=== PATIENT | female | born 1960 | race Caucasian/White ===

== ENCOUNTER → 2018-02-22 | Outpatient (CLI) | payer MEDICARE ==
[~2018-02-22] MED LIST: ALBU90OI INH; ASPI81CH PO; ATOR40TA PO; ATOR80 PO; CEPH500 PO; Cartia Xt120 MG PO; DILT60ER PO; GABA800 PO; GLIP5 PO; Humulin 70-30 V10 ML SC; Isosorbide Mono60 MG PO; Keflex500 MG PO; LEVSOD125 PO; LOSA25 PO; LOSA50 PO; METF500 PO; METO25 PO; Nitrostat0.4 MG SL; Norco 5-325 Ta1 EACH PO; OMEP40CA12 PO; OMEPRAZOLE MAGN20 MG PO; PROM25 PO; Percocet 5-3251 EACH PO; SULTRIDS PO; TRIHYD253A PO; VENLAFAXINE H37.5 MG PO; VITAMIN D3 1,01 EACH PO; Zofran8 MG PO
[2018-02-22 18:09] LABS: Appearance, Urine Clear (Clear); Bilirubin, Urine Neg (Neg); Blood, Urine Neg (Neg); Color, Urine Yellow (P-Yellow); Glucose Qualitative, Urine Neg (Neg); Ketones, Urine Neg (Neg); Leukocyte Esterase, Urine Neg (Neg); Nitrite, Urine Neg (Neg); Protein, Urine Neg (Neg); Specific Gravity, Urine 1.005 (1.003-1.022); Urobilinogen, Urine NORM (Normal)
== END | disposition home or self-care (01) ==
LOC: LAB 17:57 → LAB SHORT 17:57
PROVIDERS: Internal Medicine Hematology & Oncology
DX: N39.0 Urinary tract infection, site not specified (principal)
CPT/HCPCS: 81003

== ENCOUNTER 2018-02-26 09:34 | Day surgery (SDC) | payer MEDICARE ==
[~2018-02-26] VITALS: Ht 172.7 cm; Wt 90.9 kg
== END 2018-02-26 11:30 | disposition home or self-care (01) ==
LOC: ORSCSDS 09:34
PROVIDERS: Internal Medicine Gastroenterology
PROC: 0DBK8ZX Excision of Ascending Colon, Via Natural or Artificial Opening Endoscopic, Diagnostic (ICD-10-PCS; principal; 2018-02-26 11:00)
PROC: 0DBP8ZX Excision of Rectum, Via Natural or Artificial Opening Endoscopic, Diagnostic (ICD-10-PCS; principal; 2018-02-26 11:00)
DX: Z12.11 Encounter for screening for malignant neoplasm of colon (principal); D12.2 Benign neoplasm of ascending colon; K62.1 Rectal polyp; K57.30 Diverticulosis of large intestine without perforation or abscess without bleeding; K64.1 Second degree hemorrhoids; E11.9 Type 2 diabetes mellitus without complications; I10 Essential (primary) hypertension; Z79.4 Long term (current) use of insulin; Z79.899 Other long term (current) drug therapy; Z79.82 Long term (current) use of aspirin
CPT/HCPCS: 82947; 88305; J7120

== ENCOUNTER 2018-05-22 09:12 | Observation (INO) | payer MEDICARE, SELFPAY ==
[~2018-05-22] VITALS: Ht 170.2 cm; Wt 94.4 kg
[~2018-05-22 09:12] MED LIST changes: -METF500 PO; +METF500C PO
[2018-05-22 09:44] LABS: BASOPHILS ABSOLUTE AUTO 0.04 K/mm3 (0.00-0.23); BASOPHILS PERCENT AUTO 1 % (0-2); EOSINOPHILS ABSOLUTE AUTO 0.15 K/mm3 (0.00-0.68); EOSINOPHILS PERCENT AUTO 3 % (0-6); Hematocrit 35.4 % (33.0-51.0); Hemoglobin 11.2 g/dL (11.5-16.0); IMMATURE GRAN ABSOLUTE AUTO 0.01 K/mm3 (0.00-0.10); IMMATURE GRAN PERCENT AUTO 0 % (0-1); LYMPHOCYTES ABSOLUTE AUTO 1.74 K/mm3 (0.84-5.20); LYMPHOCYTES PERCENT AUTO 39 % (21-46); MONOCYTES ABSOLUTE AUTO 0.34 K/mm3 (0.16-1.47); MONOCYTES PERCENT AUTO 8 % (4-13); Mean Corpuscular HGB 28.6 pg (26.0-34.0); Mean Corpuscular HGB Conc 31.6 g/dL (31.5-36.5); Mean Corpuscular Volume 90 fL (80-100); NEUTROPHILS ABSOLUTE AUTO 2.23 K/mm3 (1.96-9.15); NEUTROPHILS PERCENT AUTO 50 % (41-73); Platelet Count 165 K/mm3 (150-400); RDW Coefficient Variation 13.1 % (11.7-14.2); RDW Standard Deviation 42.9 fL (35.1-46.3); Red Blood Cell Count 3.92 M/mm3 (3.80-5.20); White Blood Cell Count 4.51 K/mm3 (4.00-11.30)
[2018-05-22 10:07] LABS: Troponin I 0.039 ng/mL (0.000-0.040)
[2018-05-22 10:08] LABS: Alanine Aminotransfer (ALT/SGP 31 U/L (12-78); Albumin, Blood 3.8 g/dL (3.4-5.0); Albumin/Globulin Ratio 1.2 (0.8-1.8); Alk Phos 70 U/L (50-136); Anion Gap 7 mmol/L (6-16); Aspartate Aminotrans (AST/SGOT 16 U/L (12-37); Bilirubin, Total 0.3 mg/dL (0.1-1.0); Blood Urea Nitrogen 19 mg/dL (8-24); Bun/Creatinine Ratio 21.6 (12.0-20.0); CO2, Blood 25 mmol/L (21-32); Calcium, Blood 8.5 mg/dL (8.5-10.1); Chloride, Blood 107 mmol/L (98-108); Creatinine, Blood 0.88 mg/dL (0.40-1.00); Globulin, Blood 3.3 g/dL (2.2-4.0); Glomerular Filtration Rate >60 (60-); Glucose, Blood 253 mg/dL (70-99); Potassium, Blood 4.4 mmol/L (3.5-5.5); Sodium, Blood 139 mmol/L (136-145); Total Protein, Blood 7.1 g/dL (6.4-8.2)
[2018-05-22] MEDS ORDERED: PROC5 PO (15:12)
[2018-05-22] MEDS ORDERED: ROSU5 PO (15:13)
== END 2018-05-23 11:03 | disposition home or self-care (01) ==
LOC: ER 09:12 → MEDS 11:20 → ENPENDDIS 05-23 08:46 → MEDS 05-23 11:03
PROVIDERS: Emergency Medicine
DX: R07.89 Other chest pain (principal); I25.10 Atherosclerotic heart disease of native coronary artery without angina pectoris; E11.9 Type 2 diabetes mellitus without complications; I10 Essential (primary) hypertension; E03.9 Hypothyroidism, unspecified; E11.42 Type 2 diabetes mellitus with diabetic polyneuropathy; D64.9 Anemia, unspecified; M79.7 Fibromyalgia; I25.2 Old myocardial infarction; E78.5 Hyperlipidemia, unspecified; F32.9 Major depressive disorder, single episode, unspecified; Z79.84 Long term (current) use of oral hypoglycemic drugs; Z79.899 Other long term (current) drug therapy; Z79.82 Long term (current) use of aspirin
CPT/HCPCS: 36415; 71046; 80053; 82947; 84484; 85025; 93005; 93010; 96372; 96374; 99285-25; G0378; J1650; J3010

== ENCOUNTER 2018-08-23 11:35 | Emergency (ER) | payer MEDICARE, SELFPAY ==
[~2018-08-23] VITALS: Ht 170.2 cm; Wt 95.2 kg
[~2018-08-23 11:35] MED LIST changes: +PROC5 PO; +ROSU5 PO
[2018-08-23 12:17] LABS: Source, Urine Clean Catch
[2018-08-23 12:23] LABS: Bilirubin, Urine Neg (Neg); Blood, Urine 4+ (Neg); Color, Urine Yellow (P-Yellow); Glucose Qualitative, Urine Neg (Neg); Ketones, Urine Neg (Neg); Leukocyte Esterase, Urine 2+ (Neg); Nitrite, Urine Pos (Neg); Protein, Urine Neg (Neg); Urobilinogen, Urine NORM (Normal)
[2018-08-23 12:48] LABS: Appearance, Urine Hazy (Clear)
[2018-08-23] MEDS ORDERED: KETO10 PO (13:09)
[2018-08-23] MEDS ORDERED: Cipro250 MG PO (13:09)
[2018-08-23] MEDS ORDERED: Zofran4 MG PO (13:09)
== END 2018-08-23 13:27 | disposition home or self-care (01) ==
LOC: ER 11:35
PROVIDERS: Physician Assistant
DX: N12 Tubulo-interstitial nephritis, not specified as acute or chronic (principal); Z90.710 Acquired absence of both cervix and uterus; Z98.51 Tubal ligation status; Z79.82 Long term (current) use of aspirin; Z79.899 Other long term (current) drug therapy
CPT/HCPCS: 87077; 87086; 87186; 99284

== ENCOUNTER 2019-03-17 15:21 | Emergency (ER) | payer MEDICARE, SELFPAY ==
[~2019-03-17] VITALS: Ht 170.2 cm; Wt 94.3 kg
[~2019-03-17 15:21] MED LIST changes: +CEFU250T47 PO; +Cipro250 MG PO; +HYDR1TAB94 PO; +Isosorbide Mono30 MG PO; +KETO10 PO; +Zofran4 MG PO
[2019-03-17 16:13] LABS: BASOPHILS ABSOLUTE AUTO 0.02 K/mm3 (0.00-0.23); BASOPHILS PERCENT AUTO 0 % (0-2); EOSINOPHILS ABSOLUTE AUTO 0.01 K/mm3 (0.00-0.68); EOSINOPHILS PERCENT AUTO 0 % (0-6); Hematocrit 36.5 % (33.0-51.0); Hemoglobin 11.5 g/dL (11.5-16.0); IMMATURE GRAN ABSOLUTE AUTO 0.02 K/mm3 (0.00-0.10); IMMATURE GRAN PERCENT AUTO 0 % (0-1); LYMPHOCYTES ABSOLUTE AUTO 1.82 K/mm3 (0.84-5.20); LYMPHOCYTES PERCENT AUTO 35 % (21-46); MONOCYTES ABSOLUTE AUTO 0.37 K/mm3 (0.16-1.47); MONOCYTES PERCENT AUTO 7 % (4-13); Mean Corpuscular HGB 27.9 pg (26.0-34.0); Mean Corpuscular HGB Conc 31.5 g/dL (31.5-36.5); Mean Corpuscular Volume 89 fL (80-100); Mean Platelet Volume 9.8 fL (9.1-12.4); NEUTROPHILS ABSOLUTE AUTO 3.03 K/mm3 (1.96-9.15); NEUTROPHILS PERCENT AUTO 58 % (41-73); Platelet Count 176 K/mm3 (150-400); RDW Coefficient Variation 13.9 % (11.7-14.2); RDW Standard Deviation 45.1 fL (35.1-46.3); Red Blood Cell Count 4.12 M/mm3 (3.80-5.20); White Blood Cell Count 5.27 K/mm3 (4.00-11.30)
[2019-03-17 16:41] LABS: Alanine Aminotransfer (ALT/SGP 27 U/L (12-78); Albumin, Blood 4.2 g/dL (3.4-5.0); Albumin/Globulin Ratio 1.2 (0.8-1.8); Alk Phos 64 U/L (50-136); Anion Gap 7 mmol/L (6-16); Aspartate Aminotrans (AST/SGOT 18 U/L (12-37); Bilirubin, Total 0.3 mg/dL (0.1-1.0); Blood Urea Nitrogen 26 mg/dL (8-24); Bun/Creatinine Ratio 27.3 (12.0-20.0); CO2, Blood 24 mmol/L (21-32); Calcium, Blood 9.1 mg/dL (8.5-10.1); Chloride, Blood 107 mmol/L (98-108); Creatinine, Blood 0.95 mg/dL (0.40-1.00); Globulin, Blood 3.4 g/dL (2.2-4.0); Glomerular Filtration Rate >60 (60-); Glucose, Blood 100 mg/dL (70-99); Potassium, Blood 4.2 mmol/L (3.5-5.5); Sodium, Blood 138 mmol/L (136-145); Total Protein, Blood 7.6 g/dL (6.4-8.2); Troponin I <0.015 ng/mL (0.000-0.040)
== END 2019-03-17 21:10 | disposition home or self-care (01) ==
LOC: ER 15:21
PROVIDERS: Physician Assistant
DX: J02.9 Acute pharyngitis, unspecified (principal); R07.9 Chest pain, unspecified; E11.9 Type 2 diabetes mellitus without complications; Z79.899 Other long term (current) drug therapy
CPT/HCPCS: 36415; 71046; 80053; 84484; 85025; 87081; 87430; 93005; 93010; 99284-25

== ENCOUNTER → 2020-02-07 | Outpatient (CLI) | payer MEDICARE | END | disposition home or self-care (01) | LOC: LAB 18:55 → LAB SHORT 18:55 | DX: J02.9 Acute pharyngitis, unspecified (principal) | CPT/HCPCS: 87081 ==

== ENCOUNTER 2022-03-03 19:17 | Emergency (ER) | payer MEDICARE, OTHER ==
[~2022-03-03] VITALS: Ht 170.2 cm; Wt 100.7 kg
[2022-03-04] MEDS ORDERED: Roxicodone5 MG PO (00:08)
== END 2022-03-04 00:38 | disposition home or self-care (01) ==
LOC: ER 19:17
DX: S82.851A Displaced trimalleolar fracture of right lower leg, initial encounter for closed fracture (principal); S93.402A Sprain of unspecified ligament of left ankle, initial encounter; S80.211A Abrasion, right knee, initial encounter; W10.9XXA Fall (on) (from) unspecified stairs and steps, initial encounter; I10 Essential (primary) hypertension; E11.9 Type 2 diabetes mellitus without complications; I25.10 Atherosclerotic heart disease of native coronary artery without angina pectoris; E78.5 Hyperlipidemia, unspecified; Z91.041 Radiographic dye allergy status; Z79.899 Other long term (current) drug therapy; Z79.84 Long term (current) use of oral hypoglycemic drugs
CPT/HCPCS: 27818; 73600; 73610; 96374; 99152; 99284-25; A9270; J2704; J3010; J7030; J7120; L1906

== ENCOUNTER 2022-03-14 09:00 | Day surgery (SDC) | payer MEDICARE ==
[~2022-03-14] VITALS: Ht 170.2 cm; Wt 100.7 kg
[~2022-03-14 09:00] MED LIST changes: +Roxicodone5 MG PO
[2022-03-14] MEDS ORDERED: NURTEC ODT75 MG (09:59)
[2022-03-14] MEDS ORDERED: BUTALB-ACETAMI1 EAC7 (09:59)
[2022-03-14] MEDS ORDERED: INSULANI (10:00)
[2022-03-14] MEDS ORDERED: HUMALOG100 UNIT/1 (10:00)
--- NOTE | 2022-03-14 12:04 | NUR ---
03/14/22 1204 JULIAN ROSENTHAL 0.15MG OF EPI (1MG/1ML) ADDED TO 30MLS OF ROPIVACAINE 0.2% TO CREATE A LOCAL SOLUTION OF ROPIVACAINE 0.2% WITH EPI 1:200,000. LOCAL POURED ONTO STERILE FIELD FOR USE DURING CASE.
--- NOTE | 2022-03-14 14:19 | NUR ---
03/14/22 1419 Madelin Arango PT. C/O NAUSEA, PT. MEDICATED FOR NAUSEA WITH ZOFRAN PER DR. PATTERSON.
--- NOTE | 2022-03-14 14:28 | NUR ---
03/14/22 1425 Madelin Arango PT. VERBALIZES NAUSEA BETTER AFTER GETTING ZOFRAN.
== END 2022-03-14 15:46 | disposition home or self-care (01) ==
LOC: ORSCSDS 09:00
PROVIDERS: Podiatrist Foot & Ankle Surgery
PROC: 0SSF04Z Reposition Right Ankle Joint with Internal Fixation Device, Open Approach (ICD-10-PCS; principal; 2022-03-14 10:30)
PROC: 0QSG04Z Reposition Right Tibia with Internal Fixation Device, Open Approach (ICD-10-PCS; principal; 2022-03-14 10:30)
PROC: 0QSJ04Z Reposition Right Fibula with Internal Fixation Device, Open Approach (ICD-10-PCS; principal; 2022-03-14 10:30)
DX: S82.851A Displaced trimalleolar fracture of right lower leg, initial encounter for closed fracture (principal); S93.491A Sprain of other ligament of right ankle, initial encounter; W17.89XA Other fall from one level to another, initial encounter; E11.40 Type 2 diabetes mellitus with diabetic neuropathy, unspecified; Z79.4 Long term (current) use of insulin; I25.10 Atherosclerotic heart disease of native coronary artery without angina pectoris; I10 Essential (primary) hypertension; Z79.899 Other long term (current) drug therapy; E66.9 Obesity, unspecified; Z68.34 Body mass index [BMI] 34.0-34.9, adult; E03.9 Hypothyroidism, unspecified
CPT/HCPCS: 82947; A9270; C1713; C1769; C1776; J0171; J0690; J1100; J2405; J2704; J2795; J3010

== ENCOUNTER → 2023-01-29 | Outpatient (CLI) | payer MEDICARE ==
[~2023-01-29] MED LIST changes: +BUTALB-ACETAMI1 EAC7; +Crestor40 MG PO; +EFFEXOR XR150 MG PO; +EUTHYROX100 MCG PO; +Glucophage 500 mg PO; +HUMALOG100 UNIT/1; +Humalog KwikPen 100 SC; +INSULANI; +ISOSORBIDE MONO60 MG PO; +Insulin Glargine-Yfg SC; +LOSARTAN POTAS100 M1 PO; +LYRICA150 M1 PO; +METO50ER PO; +MUPIROCIN1 G1 TOP; +NITR.4SL SL; +NURTEC ODT75 MG; +NURTEC ODT75 MG PO; +OMEP20ER PO; +RANEXA1000 M4 PO; +[UNRECOGNIZED DRUG - OTHER] PO
[2023-01-29 10:58] LABS: BASOPHILS ABSOLUTE AUTO 0.04 K/mm3 (0.00-0.23); BASOPHILS PERCENT AUTO 1 % (0-2); EOSINOPHILS ABSOLUTE AUTO 0.13 K/mm3 (0.00-0.68); EOSINOPHILS PERCENT AUTO 2 % (0-6); Hematocrit 35.7 % (33.0-51.0); Hemoglobin 11.8 g/dL (11.5-16.0); IMMATURE GRAN ABSOLUTE AUTO 0.04 K/mm3 (0.00-0.10); IMMATURE GRAN PERCENT AUTO 1 % (0-1); LYMPHOCYTES ABSOLUTE AUTO 1.39 K/mm3 (0.84-5.20); LYMPHOCYTES PERCENT AUTO 22 % (21-46); MONOCYTES ABSOLUTE AUTO 0.45 K/mm3 (0.16-1.47); MONOCYTES PERCENT AUTO 7 % (4-13); Mean Corpuscular HGB 28.8 pg (26.0-34.0); Mean Corpuscular HGB Conc 33.1 g/dL (31.5-36.5); Mean Corpuscular Volume 87 fL (80-100); Mean Platelet Volume 10.1 fL (9.1-12.4); NEUTROPHILS ABSOLUTE AUTO 4.18 K/mm3 (1.96-9.15); NEUTROPHILS PERCENT AUTO 67 % (41-73); Platelet Count 219 K/mm3 (150-400); RDW Coefficient Variation 16.1 % (11.7-14.2); RDW Standard Deviation 51.4 fL (35.1-46.3); White Blood Cell Count 6.23 K/mm3 (4.00-11.30)
[2023-01-29 11:17] LABS: Albumin, Blood 3.9 g/dL (3.4-5.0); Albumin/Globulin Ratio 1.1 (0.8-1.8); Bilirubin, Total 0.3 mg/dL (0.1-1.0); Bun/Creatinine Ratio 16.3 (12.0-20.0); Calcium, Blood 9.1 mg/dL (8.5-10.1); Creatinine, Blood 1.23 mg/dL (0.40-1.00); Globulin, Blood 3.7 g/dL (2.2-4.0); Potassium, Blood 4.9 mmol/L (3.5-5.5); Total Protein, Blood 7.6 g/dL (6.4-8.2)
== END | disposition home or self-care (01) ==
LOC: LAB SHORT 10:54 → LAB 10:54
PROVIDERS: Physician Assistant
DX: I95.9 Hypotension, unspecified (principal); R00.2 Palpitations; R53.83 Other fatigue; R55 Syncope and collapse
CPT/HCPCS: 80053; 84484; 85025; 85379

== ENCOUNTER 2023-03-02 12:29 | Inpatient (IN) | payer MEDICARE, OTHER ==
[~2023-03-02] VITALS: Ht 170.2 cm; Wt 104.3 kg
[~2023-03-02 12:29] MED LIST changes: +Amoxicillin500 MG; +HYDHCL25 PO; +INSULANI SC; +NITR.4SL; +NOVOLOG100 UNIT/2
[2023-03-02 13:13] LABS: BASOPHILS ABSOLUTE AUTO 0.03 K/mm3 (0.00-0.23); BASOPHILS PERCENT AUTO 1 % (0-2); EOSINOPHILS PERCENT AUTO 2 % (0-6); Hematocrit 32.8 % (33.0-51.0); Hemoglobin 10.7 g/dL (11.5-16.0); IMMATURE GRAN ABSOLUTE AUTO 0.02 K/mm3 (0.00-0.10); IMMATURE GRAN PERCENT AUTO 0 % (0-1); LYMPHOCYTES ABSOLUTE AUTO 1.29 K/mm3 (0.84-5.20); LYMPHOCYTES PERCENT AUTO 28 % (21-46); MONOCYTES ABSOLUTE AUTO 0.29 K/mm3 (0.16-1.47); MONOCYTES PERCENT AUTO 6 % (4-13); Mean Corpuscular HGB 28.8 pg (26.0-34.0); Mean Corpuscular HGB Conc 32.6 g/dL (31.5-36.5); Mean Corpuscular Volume 88 fL (80-100); Mean Platelet Volume 10.9 fL (9.1-12.4); NEUTROPHILS ABSOLUTE AUTO 2.81 K/mm3 (1.96-9.15); NEUTROPHILS PERCENT AUTO 62 % (41-73); Platelet Count 160 K/mm3 (150-400); RDW Standard Deviation 51.7 fL (35.1-46.3); Red Blood Cell Count 3.71 M/mm3 (3.80-5.20); White Blood Cell Count 4.54 K/mm3 (4.00-11.30)
[2023-03-02 13:22] LABS: Albumin, Blood 3.6 g/dL (3.4-5.0); Albumin/Globulin Ratio 1.2 (0.8-1.8); Bilirubin, Total 0.3 mg/dL (0.1-1.0); Bun/Creatinine Ratio 25.6 (12.0-20.0); Calcium, Blood 8.9 mg/dL (8.5-10.1); Creatinine, Blood 0.94 mg/dL (0.40-1.00); Globulin, Blood 3.1 g/dL (2.2-4.0); Potassium, Blood 5.1 mmol/L (3.5-5.5); Total Protein, Blood 6.7 g/dL (6.4-8.2)
[2023-03-02 13:25] LABS: Calcium, Ionized (POC) 1.17 mmol/L (1.10-1.46); Chloride (POC) 106 mmol/L (98-108); Glucose (ISTAT POC) 202 mg/dL (70-99); Hemoglobin (POC) 10.5 g/dL (12.0-16.0); Sodium (POC) 138 mmol/L (135-148); Total CO2 (POC) 21 mmol/L (21-32)
[2023-03-02 16:26] VITALS: BP 111/75
[2023-03-02] MEDS ORDERED: ASPIR 8181 M1 PO (16:39)
[2023-03-02] MEDS ORDERED: THERA-D2000 UNIT PO (16:40)
[2023-03-02] MEDS ORDERED: Hair, Skin & N1 EACH PO (16:40)
[2023-03-02] MEDS ORDERED: MAGCIT300 PO (16:40)
[2023-03-02 16:52] VITALS: BP 81/59
[2023-03-02 16:54] VITALS: BP 107/70
--- NOTE | 2023-03-02 18:37 | NUR ---
PT ARRIVED TO [facility] VIA GURNEY FROM ED APROX 1615. PT ABLE TO STAND AND AMBULATE TO RESTROOM WITH NURSE STANDBY. PT REPORTS FEELING "A LITTLE DIZZY." HR NOTED TO DROP INTO THE 30s WHILE TALKING WITH THIS RN, APPEARS TO BE JUNCTIONAL RHYTHM, PT IS ASYMPTOMATIC. SEE DOCUMENTED VS AND ASSESSMENT. ATROPINE AT BEDSIDE. PT'S SON AT BEDSIDE, UPDATED ON PLAN OF CARE. SARA ANDERSON EDUCATION COMPLETED WITH PT AND HER SON, VERBALIZES UNDERSTANDING. PT HAS NO COMPLAINTS AT THIS TIME, PT ABLE TO USE CALL LIGHT FOR NEEDS, CALL LIGHT IN REACH, WILL CONTINUE TO MONITOR AND GIVE REPORT TO NOC SHIFT RN.
[2023-03-02 20:49] VITALS: BP 106/80
[2023-03-02 23:13] VITALS: BP 124/73
[2023-03-03 03:15] VITALS: BP 115/71
[2023-03-03 05:06] LABS: Albumin, Blood 3.1 g/dL (3.4-5.0); Albumin/Globulin Ratio 1.1 (0.8-1.8); Bilirubin, Total 0.4 mg/dL (0.1-1.0); Bun/Creatinine Ratio 20.7 (12.0-20.0); Calcium, Blood 7.7 mg/dL (8.5-10.1); Creatinine, Blood 0.82 mg/dL (0.40-1.00); Globulin, Blood 2.8 g/dL (2.2-4.0); Potassium, Blood 4.6 mmol/L (3.5-5.5); Total Protein, Blood 5.9 g/dL (6.4-8.2)
[2023-03-03 06:31] LABS: Hematocrit 30.7 % (33.0-51.0); Hemoglobin 9.9 g/dL (11.5-16.0); Mean Corpuscular HGB 28.2 pg (26.0-34.0); Mean Corpuscular HGB Conc 32.2 g/dL (31.5-36.5); Mean Corpuscular Volume 88 fL (80-100); Mean Platelet Volume 10.8 fL (9.1-12.4); Platelet Count 140 K/mm3 (150-400); RDW Coefficient Variation 15.9 % (11.7-14.2); RDW Standard Deviation 50.2 fL (35.1-46.3); Red Blood Cell Count 3.51 M/mm3 (3.80-5.20); White Blood Cell Count 3.18 K/mm3 (4.00-11.30)
--- NOTE | 2023-03-03 06:53 | NUR ---
SHIFT SUMMARY PATIENT ALERT AND ORIENTED X4. ABLE TO AMBULATE TO THE RESTROOM WITH MINIMAL ASSISTANCE. PATIENT REPORTS FEELING SLIGHTLY DIZZY AND LIGHT HEADED WHEN AMBULATING, NO COMPLAINTS OF CHEST PAIN OR SHORTNESS OF BREATH. ON ROOM AIR. BRADYCARDIC IN THE 50'S OVERNIGHT. BLOOD PRESSURE STABLE. PATIENT EDUCATED ON FIRE SAFETY AND IGNITION SOURCES IN THE HOSPITAL. WILL CONTINUE TO MONITOR. CALL LIGHT WITHIN REACH.
[2023-03-03 07:06] VITALS: BP 121/80
--- NOTE | 2023-03-03 07:45 | NUR ---
Received report from Noc RN. Patient awake in bed and is alert and oriented and able to communicate her needs. She is mostly independent in room and calls appropriately when needing something. She is sitting up in bed and tolerating her start of breakfast, She is on RA and sats 97%. She has 20ga IV to RLFA and is infusing NS at 100 ml/hr, she also has 20ga IV to l=LH and is flushed and SL'd. She MAEW and tolerates ambulation well. She is afebrile at 96.5 temporal. She remains SB 50's to low 60's
--- NOTE | 2023-03-03 11:28 | NUR ---
patient tolerated breakfast and am meds well. She is up with minimal assistance to bathroom. She was up in shower and linen changed. Dr has rounded and no new orders. She remains on RA and sats >90%. NS continues at 100 ml/hr.
[2023-03-03 11:39] VITALS: BP 132/80
--- NOTE | 2023-03-03 15:09 | NUR ---
Upon receiving referral for spiritual care, I visit with the patient. She shares about her her medical issues, [place] and the family support that she receives from her son and grandson. She also mentions a dtr who lives in [place], [place]. PAtient talks about her personal struggles. I provide therapeutic listening and a blessing. Patient responded well and showed signs of an elevated mood.
--- NOTE | 2023-03-03 15:30 | NUR ---
Patient has been doing well. She was up independent to bathroom . Dr Tate has been by and no new orders, will probably go home tomorrow. She remains on RA and sats >90%. continued 100 ml/hr NS. VSS, SB in the 50's. No significant changes with patient.
[2023-03-03 16:51] LABS: IMMATURE RETIC FRACTION 22.7 % (2.3-16.0); RETICULOCYTE ABSOLUTE 0.1005 M/mm3 (0.0200-0.1100); RETICULOCYTE COUNT PERCENT 2.76 % (0.50-2.50)
[2023-03-03 17:59] VITALS: BP 144/85
--- NOTE | 2023-03-03 18:50 | NUR ---
Patient has been resting most of day in bed, she has been medicated several times with Tylenol for chest pain. Her HR remains 50-60's and held Midodrine for suystolic 144. She is up in room with minimal assist to none. VSS. JUNIOR. She continues with NS at 100 ml/hr. Plan is still to go home 03/04 after overnight monitoring.
[2023-03-03 20:12] LABS: Percent Saturation 8.3 % (15.0-50.0)
[2023-03-03 20:48] VITALS: BP 136/86
[2023-03-03 23:43] VITALS: BP 137/79
[2023-03-04 03:56] VITALS: BP 144/87
[2023-03-04 04:25] LABS: BASOPHILS ABSOLUTE AUTO 0.03 K/mm3 (0.00-0.23); BASOPHILS PERCENT AUTO 1 % (0-2); EOSINOPHILS ABSOLUTE AUTO 0.08 K/mm3 (0.00-0.68); EOSINOPHILS PERCENT AUTO 2 % (0-6); Hematocrit 32.7 % (33.0-51.0); Hemoglobin 10.6 g/dL (11.5-16.0); IMMATURE GRAN ABSOLUTE AUTO 0.01 K/mm3 (0.00-0.10); IMMATURE GRAN PERCENT AUTO 0 % (0-1); LYMPHOCYTES ABSOLUTE AUTO 1.41 K/mm3 (0.84-5.20); LYMPHOCYTES PERCENT AUTO 34 % (21-46); MONOCYTES PERCENT AUTO 7 % (4-13); Mean Corpuscular HGB 28.6 pg (26.0-34.0); Mean Corpuscular HGB Conc 32.4 g/dL (31.5-36.5); Mean Corpuscular Volume 88 fL (80-100); Mean Platelet Volume 10.8 fL (9.1-12.4); NEUTROPHILS ABSOLUTE AUTO 2.32 K/mm3 (1.96-9.15); NEUTROPHILS PERCENT AUTO 56 % (41-73); Platelet Count 149 K/mm3 (150-400); RDW Coefficient Variation 15.9 % (11.7-14.2); RDW Standard Deviation 50.5 fL (35.1-46.3); Red Blood Cell Count 3.71 M/mm3 (3.80-5.20); White Blood Cell Count 4.15 K/mm3 (4.00-11.30)
[2023-03-04 04:47] LABS: Bun/Creatinine Ratio 18.9 (12.0-20.0); Calcium, Blood 8.2 mg/dL (8.5-10.1); Creatinine, Blood 0.9 mg/dL (0.40-1.00); Potassium, Blood 4.4 mmol/L (3.5-5.5)
--- NOTE | 2023-03-04 06:47 | NUR ---
SHIFT SUMMARY PATIENT ALERT AND ORIENTED X4. MINIMAL ASSIST TO THE RESTROOM. MEDICATED PER EMAR FOR HEADACHE AND NAUSEA. ON ROOM AIR. VITAL SIGNS STABLE. PATIENT REPORTS EXPERIENCING CONSTIPATION. NO ACUTE ISSUES NOTED OVERNIGHT. PATIENT EDUCATED ON FIRE SAFETY AND IGNITION SOURCES IN THE HOSPITAL. WILL CONTINUE TO MONITOR. CALL LIGHT WITHIN REACH.
[2023-03-04 07:36] VITALS: BP 156/91
[2023-03-04 09:37] VITALS: BP 153/93
--- NOTE | 2023-03-04 10:20 | NUR ---
AM NOTE: PATIENT ALERT AND ORIENTED. VERY TALKATIVE AND IN GOOD SPIRITS. PERRLA. SOME CHRONIC NUMBNESS TO BLE. UP WITH SBA. DENIES DIZZINESS WHEN UP. SITTING IN CHAIR FOR BREAKFAST. ON ROOM AIR SATING ABOVE 95%. EVEN AND UNLABORED BREATHING. DENIES SOB/COUGH. LUNGS SOUNDING CLEAR AND DIM IN BASES. TELE SHOWING SB/SR WITH HR 40-80'S. PATIENT HR 70'S AT THIS TIME SITTING UP IN CHAIR. BP STABLE WITH SBP 150'S. PATIENTS COMPLAINS OF SLIGHT CHEST PRESSURE THAT HAS BEEN ONGOING FOR "13+ YEARS". PRESSURE IS NONRADIATING, AND IS A 4/10. COMES AND GOES WHEN BOTH UP WITH ACTIVITY AND AT REST. DR. CHIN TO BEDSIDE TO ASSESS. EKG COMPLETED AND REPORTED TO DR. CHIN. TROP LAB DRAWN AND WNL. HOME MEDS RESTARTED. DENIES ABDOMINAL PAIN/NAUSEA. BOWEL TONES PRESENT. COMPLAINS OF CONSTIPATION. STOOL SOFTNERS STARTED THIS AM. PATIENT WITH SUCCESSFULL BOWEL MOVEMENT, STOOL SAMPLE COLLECTED AND SENT TO LAB. SKIN OVERALL C/D/I. RECENT RIGHT WRIST SURGERY. INCISION SITE C/D/I. SALINE LOCKED. CALL LIGHT IN REACH. SITTING UP WATCHING TV IN CHAIR AT THIS TIME.
[2023-03-04 11:14] VITALS: BP 131/92
[2023-03-04 11:56] LABS: Stool Occult Blood Guaiac 1 Neg (Neg)
--- NOTE | 2023-03-04 13:37 | NUR ---
DR. CHIN BY THIS AFTERNOON. PLAN FOR DISCHARGE.
[2023-03-04] MEDS ORDERED: DOCU100 PO (14:26)
[2023-03-04] MEDS ORDERED: B-12500 MC2 PO (14:26)
[2023-03-04] MEDS ORDERED: HYDCOR10 PO (14:27)
--- NOTE | 2023-03-04 15:02 | NUR ---
DISCHARGE: NO ACUTE CHANGES, SEE PREVIOUS NOTES FOR UPDATES. PATIENT BP AND HR REMAIN STABLE. DISCHARGE INSTRUCTIONS REVIEWED. MEDICATIONS FAXED TO [facility]. PATIENT INSTRUCTED TO STOP TAKING METOPROLOL. PATIENT TO FOLLOW UP WITH PCP HIRO 3 DAYS TO TAKE BP AND HR TWICE A DAY AND BRING TO FOLLOW UP APPOINTMENT. PATIENT SON IN TO [facility]. PATIENT LEFT UNIT WITH ALL PERSONAL BELONGINGS AND DISCHARGE PACKET.
== END 2023-03-04 15:00 | disposition home or self-care (01) | DRG 312 ==
LOC: ER 12:29 → PCU 15:15
PROVIDERS: Internal Medicine; Student in an Organized Health Care Education/Training Program; ADMIT Internal Medicine
DX: I95.2 Hypotension due to drugs (principal); I44.2 Atrioventricular block, complete; D61.818 Other pancytopenia; R00.1 Bradycardia, unspecified; I25.10 Atherosclerotic heart disease of native coronary artery without angina pectoris; E78.5 Hyperlipidemia, unspecified; E11.40 Type 2 diabetes mellitus with diabetic neuropathy, unspecified; J45.909 Unspecified asthma, uncomplicated; E66.9 Obesity, unspecified; R29.6 Repeated falls; I10 Essential (primary) hypertension; D53.9 Nutritional anemia, unspecified; T38.0X5A Adverse effect of glucocorticoids and synthetic analogues, initial encounter; E89.0 Postprocedural hypothyroidism; K21.9 Gastro-esophageal reflux disease without esophagitis; W19.XXXA Unspecified fall, initial encounter; Z90.710 Acquired absence of both cervix and uterus; Z98.890 Other specified postprocedural states; Z91.041 Radiographic dye allergy status; I25.2 Old myocardial infarction; Z91.018 Allergy to other foods; Z79.4 Long term (current) use of insulin; Z79.51 Long term (current) use of inhaled steroids; Z79.891 Long term (current) use of opiate analgesic; Z79.890 Hormone replacement therapy; Z68.35 Body mass index [BMI] 35.0-35.9, adult
CPT/HCPCS: 36415; 71045; 80047; 80048; 80053; 82272; 82533; 82607; 82728; 82746; 82947; 83540; 83550; 83735; 83880; 84443; 84484; 85014; 85025; 85027; 85045; 85379; 93005; 93010; 93306; 94760; 96361; 96374; 97161; 99285-25; A9270; J0461; J1650; J1815; J2405; J7030

== ENCOUNTER → 2023-06-21 | Outpatient (CLI) | payer MEDICARE, OTHER ==
[~2023-06-21] MED LIST changes: +ASPIR 8181 M1 PO; +B-12500 MC2 PO; +DOCU100 PO; +HYDCOR10 PO; +Hair, Skin & N1 EACH PO; +MAGCIT300 PO; +THERA-D2000 UNIT PO
== END ==
LOC: LAB 12:33 → LAB SHORT 12:33
DX: N12 Tubulo-interstitial nephritis, not specified as acute or chronic (principal)
CPT/HCPCS: 87077; 87086; 87186

== ENCOUNTER → 2023-07-03 | Outpatient (CLI) | payer MEDICARE, OTHER | LOC: LAB SHORT 16:31 → LAB 16:31 | DX: R30.0 Dysuria (principal) | CPT/HCPCS: 87077; 87086; 87186 ==

== ENCOUNTER → 2023-12-03 | Outpatient (CLI) | payer MEDICARE, OTHER ==
[~2023-12-03] MED LIST changes: +METFORMIN HCL500 M2 PO; +METOPROLOL SUCC25 MG PO; +RANOLAZINE ER500 M2 PO; +SPIRONOLACTONE25 MG PO; +UBRELVY100 MG PO
== END | disposition home or self-care (01) ==
LOC: LAB 16:01 → LAB SHORT 16:01
DX: R30.0 Dysuria (principal)
CPT/HCPCS: 87077; 87086; 87186

== ENCOUNTER 2023-12-29 19:39 | Emergency (ER) | payer MEDICARE, OTHER ==
[~2023-12-29] VITALS: Ht 170.2 cm; Wt 99.8 kg
[2023-12-29 23:00] VITALS: BP 119/73
[2023-12-29] MEDS ORDERED: Ibuprofen 600 MG Tab PO ONE (23:25)
== END 2023-12-30 00:44 | disposition home or self-care (01) ==
LOC: ER 19:39
DX: S86.911A Strain of unspecified muscle(s) and tendon(s) at lower leg level, right leg, initial encounter (principal); X58.XXXA Exposure to other specified factors, initial encounter; E11.9 Type 2 diabetes mellitus without complications; I10 Essential (primary) hypertension; E78.5 Hyperlipidemia, unspecified; Z79.84 Long term (current) use of oral hypoglycemic drugs; Z79.82 Long term (current) use of aspirin; Z79.4 Long term (current) use of insulin; Z79.899 Other long term (current) drug therapy; Z91.041 Radiographic dye allergy status; Z88.8 Allergy status to other drugs, medicaments and biological substances
CPT/HCPCS: 93971; 99283-25; A9270

== ENCOUNTER → 2024-07-26 | Outpatient (CLI) | payer MEDICARE, OTHER ==
[2024-07-26 15:26] LABS: Source, Urine Clean Catch
[2024-07-26 17:23] LABS: Appearance, Urine Clear (Clear); Blood, Urine 4+ (Neg); Color, Urine Yellow (P-Yellow); Glucose Qualitative, Urine Neg (Neg); Ketones, Urine Neg (Neg); Leukocyte Esterase, Urine 2+ (Neg); Nitrite, Urine Pos (Neg); Protein, Urine 2+ (Neg); Urobilinogen, Urine NORM (Normal)
[2024-07-26 17:42] LABS: Bilirubin, Urine 1+ (Neg)
[2024-07-26 17:43] LABS: Bacteria Many /hpf; Squamous Epithelial Cells Few /hpf (Few); Transitional Epithelial Cells Rare /hpf (0-Rare)
== END ==
LOC: LAB SHORT 15:25 → LAB 15:25
PROVIDERS: Obstetrics & Gynecology
DX: R30.0 Dysuria (principal)
CPT/HCPCS: 81001; 87077; 87086; 87186

== ENCOUNTER → 2024-11-11 | Outpatient (CLI) | payer MEDICARE, OTHER | LOC: LAB 10:23 → LAB SHORT 10:23 | DX: E11.51 Type 2 diabetes mellitus with diabetic peripheral angiopathy without gangrene (principal) | CPT/HCPCS: 87070; 87205 ==

== ENCOUNTER 2024-11-12 18:15 | Emergency (ER) | payer MEDICARE, OTHER ==
[~2024-11-12] VITALS: Ht 170.2 cm; Wt 101.6 kg
[2024-11-12 18:19] VITALS: BP 112/58
== END 2024-11-12 19:45 | disposition home or self-care (01) ==
LOC: ER 18:15
DX: E11.621 Type 2 diabetes mellitus with foot ulcer (principal); I10 Essential (primary) hypertension; E78.5 Hyperlipidemia, unspecified; Z91.041 Radiographic dye allergy status; Z79.4 Long term (current) use of insulin; Z79.1 Long term (current) use of non-steroidal anti-inflammatories (NSAID); Z79.899 Other long term (current) drug therapy; Z79.82 Long term (current) use of aspirin
CPT/HCPCS: 73620; 99283-25

== ENCOUNTER 2024-11-24 10:34 | Observation (INO) | payer MEDICARE, OTHER ==
[~2024-11-24] VITALS: Ht 170.2 cm; Wt 104.5 kg
[2024-11-24 12:34] LABS: BASOPHILS ABSOLUTE AUTO 0.01 K/mm3 (0.00-0.23); BASOPHILS PERCENT AUTO 0 % (0-2); EOSINOPHILS ABSOLUTE AUTO 0.12 K/mm3 (0.00-0.68); EOSINOPHILS PERCENT AUTO 2 % (0-6); Hematocrit 41.6 % (33.0-51.0); Hemoglobin 14.1 g/dL (11.5-16.0); IMMATURE GRAN PERCENT AUTO 0 % (0-1); LYMPHOCYTES ABSOLUTE AUTO 1.86 K/mm3 (0.84-5.20); LYMPHOCYTES PERCENT AUTO 33 % (21-46); MONOCYTES ABSOLUTE AUTO 0.38 K/mm3 (0.16-1.47); MONOCYTES PERCENT AUTO 7 % (4-13); Mean Corpuscular HGB Conc 33.9 g/dL (31.5-36.5); Mean Corpuscular Volume 95 fL (80-100); Mean Platelet Volume 11.4 fL (9.1-12.4); NEUTROPHILS PERCENT AUTO 57 % (41-73); Platelet Count 146 K/mm3 (150-400); RDW Coefficient Variation 13.2 % (11.7-14.2); RDW Standard Deviation 45.2 fL (35.1-46.3); White Blood Cell Count 5.57 K/mm3 (4.00-11.30)
[2024-11-24 12:45] LABS: Albumin/Globulin Ratio 1.2 (0.8-1.8); Bilirubin, Total 0.5 mg/dL (0.1-1.0); Bun/Creatinine Ratio 32.8 (12.0-20.0); Calcium, Blood 8.8 mg/dL (8.5-10.1); Creatinine, Blood 0.95 mg/dL (0.40-1.00); Globulin, Blood 3.2 g/dL (2.2-4.0); Potassium, Blood 4.1 mmol/L (3.5-5.5); Total Protein, Blood 7.2 g/dL (6.4-8.2)
[2024-11-24] MEDS ORDERED: Morphine Sulfate 4 MG/1 ML Injection IV ONE (12:45)
[2024-11-24] MEDS ORDERED: Aspirin 81 MG Chew PO ONE (12:45)
[2024-11-24] MEDS ORDERED: Nitroglycerin 0.4 MG SUBL SL PRN (17:25)
[2024-11-24] MEDS ORDERED: Morphine Sulfate 4 MG/1 ML Injection IV PRN (17:25)
[2024-11-24 19:45] VITALS: BP 102/69
[2024-11-24] MEDS ORDERED: Ranolazine 500 MG ER Tablet PO SCH (21:00)
[2024-11-24] MEDS ORDERED: Insulin Human Lispro 100 Units/ML 3ML Syringe SC SCH (21:00)
[2024-11-24] MEDS ORDERED: Insulin Glargine-Yfgn 100 Unit/mL 3 ML SYR SC SCH (21:00)
--- NOTE | 2024-11-24 22:32 | NUR ---
PATIENT IS A NEW ADMIT JUST PRIOR TO SHIFT CHANGE. ALERT ORIENTED AND ONE ASSIST FROM GURNEY TO BED. DENIES CHEST PAIN, SOB, AND N/V. ON ROOM AIR. TELEMETRY PLACED SB 53. CBG 105. CONSENT TO PHOTOGRAPH LEFT FOOT 2ND TOE OPEN SORE FROM BLISTER X ONE MONTH AGO AND LEFT GREAT TOENAIL REMOVED X 2 MONTHS AGO. PATIENT REPORTS HAD SANDALS ON WITH NO SOCKS, WATCHING TV AFTER ASSESSMENT. NPO > MIDNIGHT FOR POSSIBLE STRESS TEST IN AM. CANCELED AT THIS TIME. WCTM.
[2024-11-25] MEDS ORDERED: Acetaminophen 500 MG Tab PO PRN (00:05)
[2024-11-25 00:39] VITALS: BP 97/61
--- NOTE | 2024-11-25 00:41 | NUR ---
PATIENT REPORTS GREGORY AND HOSPITALIST LAINA ORDERED TYLENOL 500 MG Q4 PRN.
--- NOTE | 2024-11-25 04:05 | NUR ---
SHIFT SUMMARY PATIENT HAD NO ACUTE CHANGES. ALERT ORIENTED AND INDEPENDENT IN ROOM. DENIES CHEST PAIN, SOB, AND N/V. VSS/AFEBRILE. CBG 105. PIV INTACT. TELE MONITOR SB 53. ON ROOM AIR. REPORTED GREGORY X ONE AND TYLENOL 500 MG GIVEN WITH GOOD EFFECT. HOSPITALIST AWARE OF OPEN WOUND TO LEFT 2ND TOE DORSAL SIDE WITH DRESSING FROM PRIMARY. REDRESSED AFTER PHOTO. REPORTS LIVES IN 5TH WHEEL IN [place] WITH SON AND GRANDSON CLOSE BY. CALL LIGHT IN REACH. BED IN LOWEST POSITION. WILL CONTINUE TO MONITOR UNTIL DAY SHIFT NURSE ASSUMES CARE.
[2024-11-25 04:51] VITALS: BP 100/65
[2024-11-25 05:05] LABS: Hematocrit 38.7 % (33.0-51.0); Hemoglobin 12.8 g/dL (11.5-16.0); Mean Corpuscular HGB 31.1 pg (26.0-34.0); Mean Corpuscular HGB Conc 33.1 g/dL (31.5-36.5); Mean Corpuscular Volume 94 fL (80-100); Mean Platelet Volume 11.3 fL (9.1-12.4); Platelet Count 116 K/mm3 (150-400); RDW Coefficient Variation 13.1 % (11.7-14.2); RDW Standard Deviation 45.1 fL (35.1-46.3); Red Blood Cell Count 4.11 M/mm3 (3.80-5.20); White Blood Cell Count 4.61 K/mm3 (4.00-11.30)
[2024-11-25 05:28] LABS: Anion Gap 9 mmol/L (3-11); Blood Urea Nitrogen 32 mg/dL (8-24); Bun/Creatinine Ratio 32.7 (12.0-20.0); CHOL/HDL RATIO 2.4; CO2, Blood 27 mmol/L (21-32); Chloride, Blood 104 mmol/L (98-108); Cholesterol 118 mg/dL (50-200); Creatinine, Blood 0.98 mg/dL (0.40-1.00); Glomerular Filtration Rate 64 (60-); Glucose, Blood 136 mg/dL (70-99); HDL Cholesterol 49 mg/dL (>39); LDL/HDL RATIO 0.7; Low Density Lipoprotein Chol 35 mg/dL (0-110); Potassium, Blood 3.5 mmol/L (3.5-5.5); Sodium, Blood 136 mmol/L (136-145); Triglycerides 170 mg/dL (30-160); Very Low Density Lipoprot Chol 34 mg/dL (6-32)
[2024-11-25] MEDS ORDERED: Omeprazole 20 MG CapCR PO SCH (06:00)
[2024-11-25 07:41] VITALS: BP 116/77
[2024-11-25] MEDS ORDERED: Enoxaparin 40 MG/0.4 ML SYR SC SCH (09:00)
[2024-11-25] MEDS ORDERED: Aspirin 81 MG Chew PO SCH (09:00)
[2024-11-25] MEDS ORDERED: Rosuvastatin Calcium 10 MG Tab PO SCH (09:00)
[2024-11-25] MEDS ORDERED: Docusate Sodium 100 MG Cap PO PRN (09:25)
[2024-11-25] MEDS ORDERED: NURTEC 75 MG PO PRN (09:40)
[2024-11-25] MEDS ORDERED: Prochlorperazine Maleate 5 MG Tab PO PRN (09:40)
[2024-11-25] MEDS ORDERED: Albuterol HFA200 ACT/6.7 GM INH INH PRN (09:40)
[2024-11-25] MEDS ORDERED: Isosorbide Mononitrate 30 MG TABCR PO SCH (12:00)
[2024-11-25 12:17] VITALS: BP 97/67
[2024-11-25] MEDS ORDERED: Regadenoson 0.4 MG/5 ML SYRINGE ONE (13:23)
[2024-11-25] MEDS ORDERED: Caffeine Citrated 60 MG/3 ML Vial ONE (13:23)
[2024-11-25] MEDS ORDERED: LASIX20 M2 PO (14:07)
[2024-11-25 16:21] VITALS: BP 106/70
--- NOTE | 2024-11-25 17:54 | NUR ---
SHIFT SUMMARY MS CROUCH HAD FIRST PART OF THE STRESS TEST TODAY. SHE REPORTS 1/10 LEFT DULL CHEST PAIN EARLIER TODAY THAT WAS LIKE HER USUAL CHEST PAIN SHE HAS AT HOME. SHE DENIES HAVING ANY CHEST PAIN OR PRESSURE NOW. SHE WAS EDUCATED AND AGREES TO REPORT FURTHER CP EPISODES THEY OCCUR. SHE DENIES FEELING SOB ON ROOM AIR. SHE DOES C/O FEELING SOME ABDOMINAL BLOATING. SHE REPORTS SOME NAUSEA AFTER MEALS FOR PAST TWO WEEKS. ON TELEMETRY SB/SR, NO CALLS FROPM LEATHER SOFTENER. BED LOW, CALL LIGHT IN REACH.
[2024-11-25 19:25] VITALS: BP 121/76
[2024-11-25] MEDS ORDERED: Insulin Human Lispro 100 Units/ML 3ML Syringe SC SCH (21:00)
[2024-11-25] MEDS ORDERED: Ranolazine 500 MG ER Tablet PO SCH (21:00)
[2024-11-26 00:13] VITALS: BP 119/80
[2024-11-26 03:37] VITALS: BP 106/71
--- NOTE | 2024-11-26 03:52 | NUR ---
SHIFT SUMMARY A&0X3,AFFECT PLEASANT,INDEPENDENT TO BR, HAS BEEN NPO SINCE MIDNIGHT FOR SECOND PART OF STRESS TEST IN A.M., APPEARED TO BE RESTING WELL ON ROUNDS. RECEIVED ACETAMINOPHEN (FOR GENERALIZED DISCOMFORT) X1 AND STOOL SOFTER PER REQUEST AT [facility], HAS DENIED ANY CHEST PAIN , VSS. ON TELEMETRY AND RATE/RHYTHM HAS BEEN NSR IN 60s AND SB IN 50s THIS SHIFT. CBG AT [facility] 211.
[2024-11-26] MEDS ORDERED: Levothyroxine Sodium 0.1 MG Tab PO SCH (06:00)
[2024-11-26 07:38] VITALS: BP 130/79
[2024-11-26] MEDS ORDERED: Multivitamins/Minerals TAB PO SCH (09:00)
[2024-11-26] MEDS ORDERED: Spironolactone 25 MG Tab PO SCH (09:00)
[2024-11-26] MEDS ORDERED: Cyanocobalamin 500 MCG Tab PO SCH (09:00)
[2024-11-26] MEDS ORDERED: Metoprolol Succinate 25 MG TABCR PO SCH (09:00)
[2024-11-26] MEDS ORDERED: Cholecalciferol 1000 Unit Tablet (=25MCG) PO SCH (09:00)
[2024-11-26] MEDS ORDERED: Isosorbide Mononitrate 60 MG TABCR PO SCH (09:00)
[2024-11-26] MEDS ORDERED: Losartan Potassium 50 MG Tab PO SCH (09:00)
[2024-11-26] MEDS ORDERED: Pregabalin 50 MG Capsule PO SCH (09:00)
[2024-11-26] MEDS ORDERED: Venlafaxine HCl 75 MG CapCR PO SCH (09:00)
[2024-11-26 11:54] VITALS: BP 119/72
--- NOTE | 2024-11-26 15:02 | NUR ---
DISCHARGE NOTE MS CROUCH COMPLETED THE SECOND PART OF THE STRESS TEST THIS MORNING. SHE HAD SOME NAUSEA AFTER BREAKFAST HELPED WITH COMPAZINE. SHE REPORTS THIS BEING A CHRONIC PROBLEM. NO CHEST PAIN THIS SHIFT. UP INDEPENDENTLY TO THE BATHROOM AND AROUND HER ROOM. SHE VERBALISED UNDERSTANDING OF WRITTEN AND VERBAL DISCHARGE INSTRUCTIONS. PIV REMOVED INTACT, TELEMETRY REMOVED. SHE DENIED ANY NEW CONCERNS OR QUESTIONS PRIOR TO DISCHARGE. ESCORTED FOR DISCHARGE TO MEET HER SON AT 1503HRS.
== END 2024-11-26 15:06 | disposition home or self-care (01) ==
LOC: ER 10:34 → MEDS 10:35 → ER 18:59 → ENPENDDIS 11-26 13:26 → MEDS 11-26 15:06
PROVIDERS: Student in an Organized Health Care Education/Training Program; ADMIT Internal Medicine
DX: I25.118 Atherosclerotic heart disease of native coronary artery with other forms of angina pectoris (principal); E11.42 Type 2 diabetes mellitus with diabetic polyneuropathy; E03.9 Hypothyroidism, unspecified; F32.A Depression, unspecified; E78.5 Hyperlipidemia, unspecified; E66.01 Morbid (severe) obesity due to excess calories; Z79.82 Long term (current) use of aspirin; Z79.899 Other long term (current) drug therapy; I11.0 Hypertensive heart disease with heart failure; I50.32 Chronic diastolic (congestive) heart failure
CPT/HCPCS: 36415; 71046; 78452; 80048; 80053; 80061; 82947; 83036; 84484; 85025; 85027; 85379; 93005; 93010; 93017; 94760; 96372; 96374; 99285-25; A9270; A9500; G0378; J0706; J1650; J1815; J2270; J2785; Q0164

== ENCOUNTER 2024-12-28 12:32 | Emergency (ER) | payer MEDICARE, OTHER ==
[~2024-12-28] VITALS: Ht 170.2 cm; Wt 100.7 kg
[~2024-12-28 12:32] MED LIST changes: +LASIX20 M2 PO
[2024-12-28 12:37] VITALS: BP 125/81
[2024-12-28] MEDS ORDERED: Diphth,Pertuss(Acell),Tet Vac 0.5 ML VIAL IM ONE ×2 (12:45→18:25)
== END 2024-12-28 18:37 | disposition home or self-care (01) ==
LOC: ER 12:32
DX: S61.412A Laceration without foreign body of left hand, initial encounter (principal); E03.9 Hypothyroidism, unspecified; E11.9 Type 2 diabetes mellitus without complications; I10 Essential (primary) hypertension; E78.5 Hyperlipidemia, unspecified; W26.9XXA Contact with unspecified sharp object(s), initial encounter; Z79.82 Long term (current) use of aspirin; Z79.4 Long term (current) use of insulin; Z91.041 Radiographic dye allergy status
CPT/HCPCS: 12001; 90471; 90715; 99282-25

== ENCOUNTER → 2025-06-13 | Outpatient (CLI) | payer MEDICARE, OTHER ==
[2025-06-13 11:06] LABS: Source, Urine Clean Catch
[2025-06-13 13:24] LABS: Bilirubin, Urine Neg (Neg); Color, Urine Yellow (P-Yellow); Glucose Qualitative, Urine 4+ (Neg); Ketones, Urine Neg (Neg); Leukocyte Esterase, Urine Neg (Neg); Protein, Urine Neg (Neg); Specific Gravity, Urine 1.025 (1.003-1.022); Urobilinogen, Urine NORM (Normal)
[2025-06-13 13:54] LABS: Red Blood Cells, Urine 0-2 /hpf (0-2)
== END ==
LOC: LAB 11:03 → LAB SHORT 11:03
PROVIDERS: Obstetrics & Gynecology
DX: R39.15 Urgency of urination (principal)
CPT/HCPCS: 81001; 87077; 87086; 87147; 87186